=== PATIENT | male | born 1985 | race Hispanic/Latino ===

== ENCOUNTER 2022-06-04 18:10 | Emergency (ER) | payer SELFPAY ==
[~2022-06-04] VITALS: Ht 177.8 cm; Wt 77.0 kg
[2022-06-04 18:41] VITALS: BP 117/99
[2022-06-04 18:45] VITALS: BP 123/102
[2022-06-04] MEDS ORDERED: ULTRAM50 MG PO (18:49)
[2022-06-04] MEDS ORDERED: AMOXICILLIN500 MG PO (18:49)
[2022-06-04 19:02] VITALS: BP 129/90
== END 2022-06-04 19:02 | disposition home or self-care (01) | DRG 159 ==
LOC: ED 18:10
DX: K04.7 Periapical abscess without sinus (principal)